=== PATIENT | female | born 1940 | race Caucasian/White ===

== ENCOUNTER 2016-08-08 21:18 | Emergency (ER) | payer OTHER ==
--- NOTE | 2016-08-08 22:00 | DIAGNOSTIC IMAGING REPORT ---
PROCEDURE: XR CHEST 1 VIEW INDICATION: CHEST PAIN, initial encounter TECHNIQUE: Portable AP view 09:40 p.m. COMPARISON: Chest x-ray 06/08/2012 FINDINGS: Minor left basilar atelectasis. Heart and mediastinum are normal. Thorax is normal. IMPRESSION: 1. Minor left basilar atelectasis.
--- NOTE | 2016-08-08 23:30 | ED CLINICAL REPORT ---
Clinical Report - Physicians/Mid Levels [facility] [address] [place] [address] 08/08/2016 21:20 Patient: DARIA SOLANO I Time Seen: 21:26 Aug 08 2016. Arrived- By private vehicle. Historian- patient. CPT: ER phys charges level 4 plus (#[id number]). EKG interpretation (#[id number]). 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 and is still present. It was gradual in onset and has been constant. Onset during light activity. At its maximum, severity described as 3 / 10. When seen in the E.D., severity described as 3 / 10. Modifying factors. Not worsened by anything. Not relieved by anything. It is described as pressure and it is described as located in the left chest area and left arm. No nausea, difficulty breathing or diaphoresis. (no near syncope). Similar symptoms previously: None. Recent medical care: Not recently seen/assessed. REVIEW OF SYSTEMS No fever, chills, cough, calf pain or fainting episodes. No headache, sore throat, blurred vision, abdominal pain or black stools. No difficulty with urination, skin rash, enlarged lymph nodes or bloody stools. The patient has had pedal edema (chronically). She has had moderate joint pain (chronically due to DJD), involving the right hand, right knee, left shoulder, left hand and left knee. All systems otherwise negative, except as recorded above. PAST HISTORY Skin Avulsion. Atypical Chest Pain. LNMP - Last Normal Menstrual Period. Degenerative Joint Disease. DVT left leg 30 years ago. Pneumonia x 4 last was 2-3 years Adenoidectomy. Appendectomy. . Ectopic. Tonsillectomy. No history of heart disease or lung disease. Medications: Oxybutynin Chloride Oral. OxyCODONE HCl Oral. Tylenol Oral. Warfarin Sodium Oral. Allergies: Levofloxacin. SOCIAL HISTORY Never smoker. Regular alcohol use. No drug use. ADDITIONAL NOTES The nursing notes have been reviewed. PHYSICAL EXAM Vital Signs: 08/08/2016 21:21 BP: 225/81. HR: 70. RR: 20. O2 saturation: 98%. Temp: 97.5 F. Pain level now: 10/11. Appearance: Alert. No acute distress. Anxious. Eyes: Pupils equal, round and reactive to light. Eyes normal inspection. ENT: Ears normal. Nose normal. Pharynx normal. Neck: Normal inspection. Neck supple. CVS: Normal heart rate and rhythm. Heart sounds normal. Pulses normal. Respiratory: No respiratory distress. Chest pain reproducible with palpation of the anterior and lateral chest wall, with movement of the trunk and left arm and with deep breathing (Pain reproduced with palpation of the left pectoralis insertion, muscle testing of the same group and the left arm.). Breath sounds normal. Abdomen: Soft and nontender. Back: Normal external inspection. Skin: Skin warm. Normal skin color. No rash. Extremities: Bilateral mild edema of the lower extremities. (decreased ROM both knees due to DJD pain that is chronic.). Neuro: Oriented X 3. No motor deficit. No sensory deficit. Reflexes normal. LABS, X-RAYS, AND EKG EKG: Normal sinus rhythm. Normal P waves. Normal QRS complex. Non-specific ST segment / T wave abnormalities. Prior EKG unavailable. The EKG appears to be a good tracing. Artifact present. Chest X-ray: Normal Chest X-Ray. Laboratory Tests: CBC w Diff: (DON: 08/08/2016 21:30) ( MsgRcvd 08/08/2016 21:58) Final results Test Result Flag Units (Reference) WHITE BLOOD COUNT 5.6 K/uL (4.5-11.5) RED BLOOD COUNT 5.45 H M/uL (4.00-5.20) HEMOGLOBIN 16.2 H gm/dL (12.0-16.0) HEMATOCRIT 49.8 H % (36.0-46.0) MEAN CELL VOLUME 91 fL (80-100) MEAN CORPUSCULAR HGB 30 pg (26-34) MEAN CORPUSCULAR HGB CONC 32 g/dL (31-37) RED CELL DISTRIBUTION WIDTH 14.4 % (11.6-14.8) PLATELET COUNT 240 K/uL (150-400) NEUTROPHIL % 45.3 L % (50-75) LYMPH % 42.7 H % (25-40) MONO % 6.9 % (3-14) EOSINOPHIL % 4.4 H % (0-4) BASOPHIL % 0.7 % (0-2) PT with INR: (DON: 08/08/2016 21:30) ( [facility] 08/08/2016 22:38) Final results Test Result Flag Units (Reference) INR 2.3 H (0.8-1.2) Low Intensity Therapy: INR 1.5-2.0 PT range 18.5-23.1Mod.Intensity Therapy: INR 2.0-3.0 PT range 23.1-31.5High Intensity Therapy: INR 2.5-3.5 PT range 27.4-35.5High Intensity Therapy 2: INR 3.0-4.0 PT range 31.5-39.3 TSH: (DON: 08/08/2016 21:30) ( [facility] 08/08/2016 22:37) Final results Test Result Flag Units (Reference) THYROID STIMULATING HORMONE 2.798 uIU/mL (0.30-3.74) CHEM 13 PANEL: (DON: 08/08/2016 21:30) ( [facility] 08/08/2016 21:59) Final results Test Result Flag Units (Reference) GLUCOSE 113 H mg/dL (70-110) BUN 16 mg/dL (7-18) CREATININE 0.8 mg/dL (0.6-1.3) Estimated GFR >60 mL/min Estimated GFR- >60 mL/min Note: Persistent reduction over 3 months in eGFR<60 mL/min/1.73 m2 defines CKD. Patients with eGFR values>=60 mL/min/1.73 m2 may also have CKD if evidence ofpersistent proteinuria. Additional information may be foundat www.kidney.org. SODIUM 145 mmol/L (136-145) POTASSIUM 3.4 L mmol/L (3.5-5.1) CHLORIDE 107 mmol/L (98-107) CARBON DIOXIDE 31 mmol/L (21-32) CALCIUM 8.8 mg/dL (8.5-10.1) TOTAL PROTEIN 7.5 g/dL (6.4-8.2) ALBUMIN 4.1 g/dL (3.3-5.0) BILIRUBIN, TOTAL 0.3 mg/dL (0.0-1.0) ALKALINE PHOSPHATASE 135 H U/L (46-116) AST (SGOT) 14 L U/L (15-37) ALT (SGPT) 42 U/L (12-78) CPK 49 U/L (24-260) MAGNESIUM 2.1 mg/dL (1.8-2.4) TROPONIN I <0.05 L ng/mL (0.00-1.5) TROPONIN REFERENCE RANGE:<0.1 NEGATIVE0.1-1.5 INDETERMINANT>1.5 POSITIVE . PROGRESS AND PROCEDURES Course of Care: Pt with normal troponin after 2 days of constant symptoms. Pt has reproducible chest wall tenderness likely due to recent new exercise program involving the arms. Patient/family counseled. Disposition: Discharged in stable condition. CLINICAL IMPRESSION Chest wall pain .12 lead EKG performed. INSTRUCTIONS Apply moist heat for 15-20 minutes three times a day for three days until better. No strenuous activity. Warnings: Further evaluation is necessary. GENERAL WARNINGS: Return or contact your physician immediately if your condition worsens or changes unexpectedly, if not improving as expected, or if other problems arise. Your Current Medications: CONTINUE TAKING THE FOLLOWING MEDICATIONS: Oxybutynin Chloride Oral. OxyCODONE HCl Oral. Tylenol Oral. Warfarin Sodium Oral. Follow-up: Follow up with your doctor in one week. Call for an appointment. Understanding of the discharge instructions verbalized by patient and parent. (Electronically signed by Adrien Pope MD 08/09/2016 20:51)
--- NOTE | 2016-08-08 23:30 | ED ORDER SUMMARY ---
..... 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 ) (21:34 08/08/2016 HSoule per protocol) (21:35 HSoule) Chest 1V Urgent (21:35 08/08/2016 HSoule per protocol) (Ack 21:36 LTapper) (21:55 MCampbell) Cardiac Panel Stat (21:35 08/08/2016 HSoule per protocol) (Ack 21:36 LTapper) (22:52 HSoule) Oxygen (2 L/min) (NC) (21:35 08/08/2016 HSoule per protocol) (21:35 HSoule) Pulse oximeter (21:35 08/08/2016 HSoule per protocol) (21:35 HSoule) EKG - ER Stat (21:35 08/08/2016 HSoule per protocol) (21:35 HSoule) TSH Urgent (22:04 08/08/2016 Patricia JIMENEZ) (Ack 22:07 LTapper) (22:52 HSoule) PT with INR Urgent (22:09 08/08/2016 Patricia JIMENEZ) (Ack 22:19 LTapper) (22:52 HSoule) MEDICATION ORDERS: IV FLUIDS: IV Saline Lock (21:35 08/08/2016 HSoule per protocol) (21:35 HSoule) ORDER SHEET NOTES: [Electronically signed by Jennifer Miller (00:03 08/09/2016)] [Electronically signed by Adrien Pope MD (20:51 08/09/2016)] [Electronically locked/signed by Jennifer Miller (00:03 08/09/2016)]
--- NOTE | 2016-08-08 23:30 | ED CLINICAL REPORT ---
Clinical Report - Physicians/Mid Levels [facility] [address] [place] [address] 08/08/2016 21:20 Patient: DARIA SOLANO I Time Seen: 21:26 Aug 08 2016. Arrived- By private vehicle. Historian- patient. CPT: ER phys charges level 4 plus (#[id number]). EKG interpretation (#[id number]). 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 and is still present. It was gradual in onset and has been constant. Onset during light activity. At its maximum, severity described as 3 / 10. When seen in the E.D., severity described as 3 / 10. Modifying factors. Not worsened by anything. Not relieved by anything. It is described as pressure and it is described as located in the left chest area and left arm. No nausea, difficulty breathing or diaphoresis. (no near syncope). Similar symptoms previously: None. Recent medical care: Not recently seen/assessed. REVIEW OF SYSTEMS No fever, chills, cough, calf pain or fainting episodes. No headache, sore throat, blurred vision, abdominal pain or black stools. No difficulty with urination, skin rash, enlarged lymph nodes or bloody stools. The patient has had pedal edema (chronically). She has had moderate joint pain (chronically due to DJD), involving the right hand, right knee, left shoulder, left hand and left knee. All systems otherwise negative, except as recorded above. PAST HISTORY Skin Avulsion. Atypical Chest Pain. LNMP - Last Normal Menstrual Period. Degenerative Joint Disease. DVT left leg 30 years ago. Pneumonia x 4 last was 2-3 years Adenoidectomy. Appendectomy. . Ectopic. Tonsillectomy. No history of heart disease or lung disease. Medications: Oxybutynin Chloride Oral. OxyCODONE HCl Oral. Tylenol Oral. Warfarin Sodium Oral. Allergies: Levofloxacin. SOCIAL HISTORY Never smoker. Regular alcohol use. No drug use. ADDITIONAL NOTES The nursing notes have been reviewed. PHYSICAL EXAM Vital Signs: 08/08/2016 21:21 BP: 225/81. HR: 70. RR: 20. O2 saturation: 98%. Temp: 97.5 F. Pain level now: 10/11. Appearance: Alert. No acute distress. Anxious. Eyes: Pupils equal, round and reactive to light. Eyes normal inspection. ENT: Ears normal. Nose normal. Pharynx normal. Neck: Normal inspection. Neck supple. CVS: Normal heart rate and rhythm. Heart sounds normal. Pulses normal. Respiratory: No respiratory distress. Chest pain reproducible with palpation of the anterior and lateral chest wall, with movement of the trunk and left arm and with deep breathing (Pain reproduced with palpation of the left pectoralis insertion, muscle testing of the same group and the left arm.). Breath sounds normal. Abdomen: Soft and nontender. Back: Normal external inspection. Skin: Skin warm. Normal skin color. No rash. Extremities: Bilateral mild edema of the lower extremities. (decreased ROM both knees due to DJD pain that is chronic.). Neuro: Oriented X 3. No motor deficit. No sensory deficit. Reflexes normal. LABS, X-RAYS, AND EKG EKG: Normal sinus rhythm. Normal P waves. Normal QRS complex. Non-specific ST segment / T wave abnormalities. Prior EKG unavailable. The EKG appears to be a good tracing. Artifact present. Chest X-ray: Normal Chest X-Ray. Laboratory Tests: CBC w Diff: (DON: 08/08/2016 21:30) ( MsgRcvd 08/08/2016 21:58) Final results Test Result Flag Units (Reference) WHITE BLOOD COUNT 5.6 K/uL (4.5-11.5) RED BLOOD COUNT 5.45 H M/uL (4.00-5.20) HEMOGLOBIN 16.2 H gm/dL (12.0-16.0) HEMATOCRIT 49.8 H % (36.0-46.0) MEAN CELL VOLUME 91 fL (80-100) MEAN CORPUSCULAR HGB 30 pg (26-34) MEAN CORPUSCULAR HGB CONC 32 g/dL (31-37) RED CELL DISTRIBUTION WIDTH 14.4 % (11.6-14.8) PLATELET COUNT 240 K/uL (150-400) NEUTROPHIL % 45.3 L % (50-75) LYMPH % 42.7 H % (25-40) MONO % 6.9 % (3-14) EOSINOPHIL % 4.4 H % (0-4) BASOPHIL % 0.7 % (0-2) PT with INR: (DON: 08/08/2016 21:30) ( [facility] 08/08/2016 22:38) Final results Test Result Flag Units (Reference) INR 2.3 H (0.8-1.2) Low Intensity Therapy: INR 1.5-2.0 PT range 18.5-23.1Mod.Intensity Therapy: INR 2.0-3.0 PT range 23.1-31.5High Intensity Therapy: INR 2.5-3.5 PT range 27.4-35.5High Intensity Therapy 2: INR 3.0-4.0 PT range 31.5-39.3 TSH: (DON: 08/08/2016 21:30) ( [facility] 08/08/2016 22:37) Final results Test Result Flag Units (Reference) THYROID STIMULATING HORMONE 2.798 uIU/mL (0.30-3.74) CHEM 13 PANEL: (DON: 08/08/2016 21:30) ( [facility] 08/08/2016 21:59) Final results Test Result Flag Units (Reference) GLUCOSE 113 H mg/dL (70-110) BUN 16 mg/dL (7-18) CREATININE 0.8 mg/dL (0.6-1.3) Estimated GFR >60 mL/min Estimated GFR- >60 mL/min Note: Persistent reduction over 3 months in eGFR<60 mL/min/1.73 m2 defines CKD. Patients with eGFR values>=60 mL/min/1.73 m2 may also have CKD if evidence ofpersistent proteinuria. Additional information may be foundat www.kidney.org. SODIUM 145 mmol/L (136-145) POTASSIUM 3.4 L mmol/L (3.5-5.1) CHLORIDE 107 mmol/L (98-107) CARBON DIOXIDE 31 mmol/L (21-32) CALCIUM 8.8 mg/dL (8.5-10.1) TOTAL PROTEIN 7.5 g/dL (6.4-8.2) ALBUMIN 4.1 g/dL (3.3-5.0) BILIRUBIN, TOTAL 0.3 mg/dL (0.0-1.0) ALKALINE PHOSPHATASE 135 H U/L (46-116) AST (SGOT) 14 L U/L (15-37) ALT (SGPT) 42 U/L (12-78) CPK 49 U/L (24-260) MAGNESIUM 2.1 mg/dL (1.8-2.4) TROPONIN I <0.05 L ng/mL (0.00-1.5) TROPONIN REFERENCE RANGE:<0.1 NEGATIVE0.1-1.5 INDETERMINANT>1.5 POSITIVE . PROGRESS AND PROCEDURES Course of Care: Pt with normal troponin after 2 days of constant symptoms. Pt has reproducible chest wall tenderness likely due to recent new exercise program involving the arms. Patient/family counseled. Disposition: Discharged in stable condition. CLINICAL IMPRESSION Chest wall pain .12 lead EKG performed. INSTRUCTIONS Apply moist heat for 15-20 minutes three times a day for three days until better. No strenuous activity. Warnings: Further evaluation is necessary. GENERAL WARNINGS: Return or contact your physician immediately if your condition worsens or changes unexpectedly, if not improving as expected, or if other problems arise. Your Current Medications: CONTINUE TAKING THE FOLLOWING MEDICATIONS: Oxybutynin Chloride Oral. OxyCODONE HCl Oral. Tylenol Oral. Warfarin Sodium Oral. Follow-up: Follow up with your doctor in one week. Call for an appointment. Understanding of the discharge instructions verbalized by patient and parent. (Electronically signed by Adrien Pope MD 08/09/2016 20:51)
--- NOTE | 2016-08-08 23:30 | ED NURSING NOTES ---
Clinical Report - Nurses [facility] [address] [place] [address] 08/08/2016 21:20 [id number] Triage time 21:Aug 08 2016. Acuity: LEVEL 2. Chief Complaint: CHEST PAIN and SHORTNESS OF BREATH. SEPSIS SCREEN: Sepsis Screen: negative. Negative (no infection suspected/documented). --21:28 Jennifer Miller 21:21 08/08/16. BP: 225/81. HR: 70. RR: 20. O2 saturation: 98% on room air. Temp: 97.5 F (oral). Pain level now: 10/11. --21:28 Jennifer Miller JOAQUÍN COMA SCORE: [place] Coma Scale: 15- eyes open spontaneously (4); best verbal response- oriented x 4 (5); best motor response- obeys commands (6). --21:28 Jennifer Miller. Weight: 72.5 kg stated. Height/Length: 65 inches Per Patient. BMI: 26.6. --21:24 Jennifer Miller. Medications OxyCODONE HCl Oral. Tylenol Oral. Warfarin Sodium Oral. --21:23 Jennifer Miller Oxybutynin Chloride Oral. --21:24 Jennifer Miller. Allergies Levofloxacin. --21:23 Jennifer Miller. History Arrived by private vehicle. Historian: patient. Accompanied by family. Primary physician (jessi blackmon). This started yesterday. ( Patient reports some "heaviness" in her chest since yesterday. She states it doesn't hurt but doesn't feel right. She reports some pain in her left arm.). PAST MEDICAL HX: Immunizations: up-to-date. The patient is post-menopausal. SOCIAL HX: Never smoker. Regular alcohol use. No drug use. No infectious disease exposure. ABUSE ASSESSMENT: No report of abuse. FALL RISK ASSESSMENT: Fall risk assessment completed. No fall risk identified. NUTRITIONAL RISK ASSESSMENT: The nutritional risk assessment revealed no deficiencies. FUNCTIONAL ASSESSMENT: Functional assessment: no impairments noted. LEARNING NEEDS ASSESSMENT: The learning needs assessment revealed no barriers. SKIN INTEGRITY ASSESSMENT: Skin integrity risk assessment completed. No skin integrity risk identified. --21:28 Jennifer Miller. PROBLEMS: Skin Avulsion. Atypical Chest Pain. LNMP - Last Normal Menstrual Period. Degenerative Joint Disease. DVT left leg 30 years ago. --21:24 Jennifer Miller. ADDITIONAL SURGERIES: Adenoidectomy. Appendectomy. . Ectopic. Tonsillectomy. --21:24 Jennifer Miller. Interventions ID band on patient. To treatment room. --21: Jennifer Miller. PHYSICAL ASSESSMENT To room via wheelchair. Patient gowned. GENERAL / NEURO / PSYCH: Alert. Oriented X 4. Appears in no acute distress. HEENT: Mucous membranes are pink. RESPIRATORY: Respirations not labored. CVS: Cardiac rhythm: sinus rhythm. EXTREMITIES: Bilateral 2+ pitting edema of the lower extremities involving both feet, both ankles and both lower legs. SKIN: Skin is warm and dry. --21:29 Jennifer iMller. NURSING PROGRESS NOTES Oxygen administered by nasal cannula at 2 liters. awake overnight monitor, pulse oximeter and NIBP monitor placed on patient; monitor alarms on. EKG time: (Aug 08 2016). EKG was performed by a tech and shown to the ED physician. Patient gowned. Warming measures: blanket applied. Reassurance given to the patient and patient's family. Two patient identifiers checked. Call light placed in reach. Side rails up x 1. Bed placed in lowest position. Brakes of bed on. Patient ready for evaluation- chart flagged. --21:30 Jennifer Miller 21:30 08/08/2016 Site #1 started via IV in the left antecubital space with an 18g angiocath; one attempt. Blood drawn: rainbow set. Labeled in the presence of the patient and sent to the lab. Saline lock flushed with 10 mL saline. --21:30 Jennifer Miller 21:31 08/08/16. BP: 161/56. HR: 65. RR: 16. O2 saturation: 98% on nasal cannula at 2 liters/minute. --21:32 Jennifer Miller 21:45 08/08/16. BP: 198/84. HR: 60. RR: 20. O2 saturation: 100% on room air. Pain level now: 10/11. --21:45 Jennifer Miller ( Provider at bedside). --22:02 Jennifer Miller 22:08/08/16. BP: 202/71. HR: 61. RR: 20. O2 saturation: 98% on nasal cannula at 2 liters/minute. Pain level now: 10/11. --22:02 Jennifer Miller The patient reports no complaints and she is resting quietly. --22:22 Jennifer Miller 22:21 08/08/16. BP: 187/66. HR: 60. RR: 20. O2 saturation: 96% on room air. Pain level now: 10/11. --22:22 Jennifer Miller 22:57 08/08/16. BP: 175/71. HR: 62. RR: 20. O2 saturation: 97% on nasal cannula at 2 liters/minute. --22:58 Jennifer Miller. DISPOSITION / DISCHARGE 23:23 08/08/16. BP: 175/71. HR: 66. RR: 20. O2 saturation: 98% on room air. Temp: deferred. Pain level now: 09/13. --23:29 Jennifer Miller 23:29 08/08/2016 Site #1 removed upon discharge. Catheter intact. Bandaid applied. --23:29 Jennifer Miller 23:29 08/08/16. Condition at departure: stable. --23:29 Jennifer Miller 23:30 08/08/16. No learning barriers present. Discharge instructions provided and reviewed with the patient and spouse. Patient and spouse verbalized understanding. Written instructions provided in Icelandic. ( Follow up with your provider in one week. Return for worsening symptoms.). The patient was discharged by the physician. She was discharged home and accompanied by spouse. She left the Emergency Department ambulatory and via private vehicle. Spouse driving. --00:02 Jennifer Miller. Locked/Released at 08/09/2016 0:03 by Jennifer Miller,
--- NOTE | 2016-08-08 23:30 | ED ORDER SUMMARY ---
..... 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 ) (21:34 08/08/2016 HSoule per protocol) (21:35 HSoule) Chest 1V Urgent (21:35 08/08/2016 HSoule per protocol) (Ack 21:36 LTapper) (21:55 MCampbell) Cardiac Panel Stat (21:35 08/08/2016 HSoule per protocol) (Ack 21:36 LTapper) (22:52 HSoule) Oxygen (2 L/min) (NC) (21:35 08/08/2016 HSoule per protocol) (21:35 HSoule) Pulse oximeter (21:35 08/08/2016 HSoule per protocol) (21:35 HSoule) EKG - ER Stat (21:35 08/08/2016 HSoule per protocol) (21:35 HSoule) TSH Urgent (22:04 08/08/2016 Patricia JIMENEZ) (Ack 22:07 LTapper) (22:52 HSoule) PT with INR Urgent (22:09 08/08/2016 Patricia JIMENEZ) (Ack 22:19 LTapper) (22:52 HSoule) MEDICATION ORDERS: IV FLUIDS: IV Saline Lock (21:35 08/08/2016 HSoule per protocol) (21:35 HSoule) ORDER SHEET NOTES: [Electronically signed by Jennifer Miller (00:03 08/09/2016)] [Electronically signed by Adrien Pope MD (20:51 08/09/2016)] [Electronically locked/signed by Jennifer Miller (00:03 08/09/2016)]
--- NOTE | 2016-08-08 23:30 | ED NURSING NOTES ---
Clinical Report - Nurses [facility] [address] [place] [address] 08/08/2016 21:20 [id number] TRI[facility] Triage time 21:Aug 08 2016. Acuity: LEVEL 2. Chief Complaint: CHEST PAIN and SHORTNESS OF BREATH. SEPSIS SCREEN: Sepsis Screen: negative. Negative (no infection suspected/documented). --21:28 Jennifer Miller 21:21 08/08/16. BP: 225/81. HR: 70. RR: 20. O2 saturation: 98% on room air. Temp: 97.5 F (oral). Pain level now: 10/11. --21:28 Jennifer Miller JOAQUÍN COMA SCORE: Hernando Coma Scale: 15- eyes open spontaneously (4); best verbal response- oriented x 4 (5); best motor response- obeys commands (6). --21:28 Jennifer Miller. Weight: 72.5 kg stated. Height/Length: 65 inches Per Patient. BMI: 26.6. --21:24 Jennifer Miller. Medications OxyCODONE HCl Oral. Tylenol Oral. Warfarin Sodium Oral. --21:23 Jennifer Miller Oxybutynin Chloride Oral. --21:24 Jennifer Miller. Allergies Levofloxacin. --21:23 Jennifer Miller. History Arrived by private vehicle. Historian: patient. Accompanied by family. Primary physician (jessi blackmon). This started yesterday. ( Patient reports some "heaviness" in her chest since yesterday. She states it doesn't hurt but doesn't feel right. She reports some pain in her left arm.). PAST MEDICAL HX: Immunizations: up-to-date. The patient is post-menopausal. SOCIAL HX: Never smoker. Regular alcohol use. No drug use. No infectious disease exposure. ABUSE ASSESSMENT: No report of abuse. FALL RISK ASSESSMENT: Fall risk assessment completed. No fall risk identified. NUTRITIONAL RISK ASSESSMENT: The nutritional risk assessment revealed no deficiencies. FUNCTIONAL ASSESSMENT: Functional assessment: no impairments noted. LEARNING NEEDS ASSESSMENT: The learning needs assessment revealed no barriers. SKIN INTEGRITY ASSESSMENT: Skin integrity risk assessment completed. No skin integrity risk identified. --21:28 Jennifer Miller. PROBLEMS: Skin Avulsion. Atypical Chest Pain. LNMP - Last Normal Menstrual Period. Degenerative Joint Disease. DVT left leg 30 years ago. --21:24 Jennifer Miller. ADDITIONAL SURGERIES: Adenoidectomy. Appendectomy. . Ectopic. Tonsillectomy. --21:24 Jennifer Miller. Interventions ID band on patient. To treatment room. --21: Jennifer Miller. PHYSICAL ASSESSMENT To room via wheelchair. Patient gowned. GENERAL / NEURO / PSYCH: Alert. Oriented X 4. Appears in no acute distress. HEENT: Mucous membranes are pink. RESPIRATORY: Respirations not labored. CVS: Cardiac rhythm: sinus rhythm. EXTREMITIES: Bilateral 2+ pitting edema of the lower extremities involving both feet, both ankles and both lower legs. SKIN: Skin is warm and dry. --21:29 Jennifer Miller. NURSING PROGRESS NOTES Oxygen administered by nasal cannula at 2 liters. gambling monitor, pulse oximeter and NIBP monitor placed on patient; monitor alarms on. EKG time: (Aug 08 2016). EKG was performed by a tech and shown to the ED physician. Patient gowned. Warming measures: blanket applied. Reassurance given to the patient and patient's family. Two patient identifiers checked. Call light placed in reach. Side rails up x 1. Bed placed in lowest position. Brakes of bed on. Patient ready for evaluation- chart flagged. --21:30 Jennifer Miller 21:30 08/08/2016 Site #1 started via IV in the left antecubital space with an 18g angiocath; one attempt. Blood drawn: rainbow set. Labeled in the presence of the patient and sent to the lab. Saline lock flushed with 10 mL saline. --21:30 Jennifer Miller 21:31 08/08/16. BP: 161/56. HR: 65. RR: 16. O2 saturation: 98% on nasal cannula at 2 liters/minute. --21:32 Jennifer Miller 21:45 08/08/16. BP: 198/84. HR: 60. RR: 20. O2 saturation: 100% on room air. Pain level now: 10/11. --21:45 Jennifer Miller ( Provider at bedside). --22:02 Jennifer Miller 22:08/08/16. BP: 202/71. HR: 61. RR: 20. O2 saturation: 98% on nasal cannula at 2 liters/minute. Pain level now: 10/11. --22:02 Jennifer Miller The patient reports no complaints and she is resting quietly. --22:22 Jennifer Miller 22:21 08/08/16. BP: 187/66. HR: 60. RR: 20. O2 saturation: 96% on room air. Pain level now: 10/11. --22:22 Jennifre Miller 22:57 08/08/16. BP: 175/71. HR: 62. RR: 20. O2 saturation: 97% on nasal cannula at 2 liters/minute. --22:58 Jennifer Miller. DISPOSITION / DISCHARGE 23:23 08/08/16. BP: 175/71. HR: 66. RR: 20. O2 saturation: 98% on room air. Temp: deferred. Pain level now: 09/13. --23:29 Jennifer Miller 23:29 08/08/2016 Site #1 removed upon discharge. Catheter intact. Bandaid applied. --23:29 Jennifer Miller 23:29 08/08/16. Condition at departure: stable. --23:29 Jennifer Miller 23:30 08/08/16. No learning barriers present. Discharge instructions provided and reviewed with the patient and spouse. Patient and spouse verbalized understanding. Written instructions provided in [place]raini. ( Follow up with your provider in one week. Return for worsening symptoms.). The patient was discharged by the physician. She was discharged home and accompanied by spouse. She left the Emergency Department ambulatory and via private vehicle. Spouse driving. --00:02 Jennifer Miller. Locked/Released at 08/09/2016 0:03 by Jennifer Miller,
--- NOTE | 2016-08-09 20:52 | ED MAR SUMMARY ---
..... Medication Administration Record [facility] [address] [place], [place] [id number] Patient: DARIA SOLANO I Visit ID: [id number] 75y, F Weight: 72.5 kg Height/Length: 65 in BMI: 26.6 ALLERGIES: Levofloxacin
--- NOTE | 2016-08-09 20:52 | ED MED RECONCILIATION SUMMARY ---
Patient: DARIA SOLANO I Medication Reconciliation Report [facility] VisitID: [id number] [address] [place] [address] 75y, F Registration Date/Time: 08/08/2016 Weight: 72.5 kg Height/Length: 65 in. BMI: 26.6 ALLERGIES: Levofloxacin The patient's Home Medications are listed below: CONTINUE TAKING THE FOLLOWING MEDICATIONS: Oxybutynin Chloride Oral OxyCODONE HCl Oral Tylenol Oral Warfarin Sodium Oral The source(s) of the original Home Medication information: Not obtained. The following Medications were given to the patient in the Emergency Department: None. The following Medications were prescribed to the patient: None.
--- NOTE | 2016-08-09 20:52 | ED MED RECONCILIATION SUMMARY ---
Patient: DARIA SOLANO I Medication Reconciliation Report [facility] VisitID: [id number] [address] [place] [address] 75y, F Registration Date/Time: 08/08/2016 Weight: 72.5 kg Height/Length: 65 in. BMI: 26.6 ALLERGIES: Levofloxacin The patient's Home Medications are listed below: CONTINUE TAKING THE FOLLOWING MEDICATIONS: Oxybutynin Chloride Oral OxyCODONE HCl Oral Tylenol Oral Warfarin Sodium Oral The source(s) of the original Home Medication information: Not obtained. The following Medications were given to the patient in the Emergency Department: None. The following Medications were prescribed to the patient: None.
--- NOTE | 2016-08-09 20:52 | ED DISCHARGE INSTRUCTIONS ---
Patient: DARIA SOLANO I General Instructions [facility] VisitID: [id number] [place] [address] 75y, F Registration Date/Time: 08/08/2016 Chest wall pain .12 lead EKG performed. INSTRUCTIONS Apply moist heat for 15-20 minutes three times a day for three days until better. No strenuous activity. Warnings: Further evaluation is necessary. GENERAL WARNINGS: Return or contact your physician immediately if your condition worsens or changes unexpectedly, if not improving as expected, or if other problems arise. Your Current Medications: CONTINUE TAKING THE FOLLOWING MEDICATIONS: Oxybutynin Chloride Oral. OxyCODONE HCl Oral. Tylenol Oral. Warfarin Sodium Oral. Follow-up: Follow up with your doctor in one week. Call for an appointment. Understanding of the discharge instructions verbalized by patient and parent. ADDITIONAL INFORMATION Chest Strain A strain of the chest is due to stretching and tearing of the muscle fibers between the ribs. This may occur as a result of severe coughing, strenuous lifting or twisting injuries of the upper back. This usually causes increased pain with movement or deep breathing. This may take a few days to a few weeks to heal. Home Care: Rest. Avoid heavy lifting or strenuous exertion. Avoid any activity that causes pain. If you have a severe cough, use a cough syrup such as Robitussin DM (containing dextromethorphan) unless another cough medicine was prescribed. You may use acetaminophen (Tylenol) or ibuprofen (Motrin, Advil) to control pain, unless another medicine was prescribed. [ NOTE: If you have chronic liver or kidney disease or ever had a stomach ulcer or GI bleeding, talk with your doctor before using these medicines.] Follow Up with your doctor as directed. Get Prompt Medical Attention if any of the following occur: A change in the type of pain: if it feels different, becomes more severe, lasts longer, or begins to spread into your shoulder, arm, neck, jaw or back Shortness of breath or increased pain with breathing Cough with dark colored sputum (phlegm) or blood Weakness, dizziness, or fainting Fever of 100.4F (38C) or higher, or as directed by your healthcare provider You have been given the following additional information: Chest Wall Strain No strenuous activity. (Electronically signed by Adrien Pope MD 08/09/2016 20:51)
--- NOTE | 2016-08-09 20:52 | ED MAR SUMMARY ---
..... Medication Administration Record [facility] [address], [place] [id number] Patient: DARIA SOLANO I Visit ID: [id number] 75y, F Weight: 72.5 kg Height/Length: 65 in BMI: 26.6 ALLERGIES: Levofloxacin
--- NOTE | 2016-08-09 20:52 | ED DISCHARGE INSTRUCTIONS ---
Patient: DARIA SOLANO I General Instructions [facility] VisitID: [id number] [place] [address] 75y, F Registration Date/Time: 08/08/2016 Chest wall pain .12 lead EKG performed. INSTRUCTIONS Apply moist heat for 15-20 minutes three times a day for three days until better. No strenuous activity. Warnings: Further evaluation is necessary. GENERAL WARNINGS: Return or contact your physician immediately if your condition worsens or changes unexpectedly, if not improving as expected, or if other problems arise. Your Current Medications: CONTINUE TAKING THE FOLLOWING MEDICATIONS: Oxybutynin Chloride Oral. OxyCODONE HCl Oral. Tylenol Oral. Warfarin Sodium Oral. Follow-up: Follow up with your doctor in one week. Call for an appointment. Understanding of the discharge instructions verbalized by patient and parent. ADDITIONAL INFORMATION Chest Strain A strain of the chest is due to stretching and tearing of the muscle fibers between the ribs. This may occur as a result of severe coughing, strenuous lifting or twisting injuries of the upper back. This usually causes increased pain with movement or deep breathing. This may take a few days to a few weeks to heal. Home Care: Rest. Avoid heavy lifting or strenuous exertion. Avoid any activity that causes pain. If you have a severe cough, use a cough syrup such as Robitussin DM (containing dextromethorphan) unless another cough medicine was prescribed. You may use acetaminophen (Tylenol) or ibuprofen (Motrin, Advil) to control pain, unless another medicine was prescribed. [ NOTE: If you have chronic liver or kidney disease or ever had a stomach ulcer or GI bleeding, talk with your doctor before using these medicines.] Follow Up with your doctor as directed. Get Prompt Medical Attention if any of the following occur: A change in the type of pain: if it feels different, becomes more severe, lasts longer, or begins to spread into your shoulder, arm, neck, jaw or back Shortness of breath or increased pain with breathing Cough with dark colored sputum (phlegm) or blood Weakness, dizziness, or fainting Fever of 100.4F (38C) or higher, or as directed by your healthcare provider You have been given the following additional information: Chest Wall Strain No strenuous activity. (Electronically signed by Adrien Pope MD 08/09/2016 20:51)
== END 2016-08-08 23:30 | disposition home or self-care (01) ==
LOC: ED SRH 21:18
DX: R07.89 Other chest pain (principal); I82.402 Acute embolism and thrombosis of unspecified deep veins of left lower extremity; M19.90 Unspecified osteoarthritis, unspecified site; Z79.01 Long term (current) use of anticoagulants; Z88.1 Allergy status to other antibiotic agents
CPT/HCPCS: 90100; 90616; 92610; 92720; 93140; 94060; 95059

== ENCOUNTER 2016-08-21 08:57 | Outpatient (CLI) | payer OTHER | END 2016-08-21 23:00 | LOC: LAB SRH 08:57 | DX: Z51.81 Encounter for therapeutic drug level monitoring (principal); Z79.01 Long term (current) use of anticoagulants; I26.99 Other pulmonary embolism without acute cor pulmonale | CPT/HCPCS: 90074; 94060 ==

== ENCOUNTER 2016-09-13 07:18 | Outpatient (CLI) | payer OTHER | END 2016-09-13 23:00 | LOC: LAB SRH 07:18 | DX: Z51.81 Encounter for therapeutic drug level monitoring (principal); I26.99 Other pulmonary embolism without acute cor pulmonale | CPT/HCPCS: 90074; 94060 ==

== ENCOUNTER 2016-09-27 08:15 | Outpatient (CLI) | payer OTHER | END 2016-09-27 23:00 | LOC: LAB SRH 08:15 | DX: Z51.81 Encounter for therapeutic drug level monitoring (principal); Z79.01 Long term (current) use of anticoagulants; I26.99 Other pulmonary embolism without acute cor pulmonale | CPT/HCPCS: 90074; 94060 ==

== ENCOUNTER 2016-11-08 08:44 | Outpatient (CLI) | payer OTHER | END 2016-11-08 23:00 | LOC: LAB SRH 08:44 | DX: Z51.81 Encounter for therapeutic drug level monitoring (principal); Z79.01 Long term (current) use of anticoagulants | CPT/HCPCS: 90074; 94060 ==

== ENCOUNTER 2016-12-20 08:11 | Outpatient (CLI) | payer OTHER | END 2016-12-20 23:00 | LOC: LAB SRH 08:11 | DX: Z51.81 Encounter for therapeutic drug level monitoring (principal); I26.99 Other pulmonary embolism without acute cor pulmonale | CPT/HCPCS: 90074; 94060 ==

== ENCOUNTER 2017-01-17 08:38 | Outpatient (CLI) | payer OTHER | END 2017-01-17 23:00 | disposition home or self-care (01) | LOC: LAB SRH 08:38 | DX: Z79.01 Long term (current) use of anticoagulants (principal); Z51.81 Encounter for therapeutic drug level monitoring; I26.99 Other pulmonary embolism without acute cor pulmonale | CPT/HCPCS: 90074; 94060 ==